=== PATIENT | male | born 1985 | race Caucasian/White ===

== ENCOUNTER 2017-05-24 13:43 | Emergency (ER) | payer OTHER ==
--- NOTE | 2017-05-24 17:33 | ED ---
Dizziness - HPI Summary HPI Summary: Patient presents with dizziness and left ear pain x 4 days. He denies medication changes, cough, chest pain, FINCH, or other illness. Dizziness is worse at night and better with rest. Dizziness is worse with laying to sitting and sitting to standing. He is otherwise healthy and takes no medications. Denies allergies. Denies recent travel. - History Of Current Complaint Chief Complaint: UCDizziness Stated Complaint: DIZZY,HEAD-EAR COMPLAINT Time Seen by Provider: 05/24/17 17:00 Hx Obtained From: Patient Onset/Duration: Still Present Timing: Minutes Severity Initially: Moderate Severity Currently: Moderate Character: Lightheaded, Dizzy Aggravating Factor(s): Position Change, Supine To Erect Alleviating Factor(s): Rest, Lying Down, Closing Eyes Associated Signs And Symptoms: Positive: Other: - ear pin - Risk Factors Cardiac Risk Factors: Negative CVA Risk Factor: Negative - Allergies/Home Medications Allergies/Adverse Reactions: Allergies Allergy/AdvReac Type Severity Reaction Status Date / Time No Known Allergies Allergy Verified 05/24/17 13:56 PMH/Surg Hx/FS Hx/Imm Hx Previously Healthy: Yes - Immunization History Hx Pertussis Vaccination: No Immunizations Up to Date: Unable to Obtain/Confirm Infectious Disease History: No Infectious Disease History: Denies: Traveled Outside the in Last 30 Days - Social History Occupation: Unemployed Lives: With Family Alcohol Use: None Hx Substance Use: No Substance Use Type: Reports: None Hx Tobacco Use: No Smoking Status (MU): Never Smoked Tobacco Review of Systems Constitutional: Negative Eyes: Negative Cardiovascular: Negative Respiratory: Negative Positive: no symptoms reported, see HPI Musculoskeletal: Negative Neurological: Other - dizziness Psychological: Normal All Other Systems Reviewed And Are Negative: Yes Physical Exam Triage Information Reviewed: Yes Vital Signs On Initial Exam: Initial Vitals Temp Pulse Resp BP Pulse Ox 97.9 F 70 18 134/68 100 05/24/17 13:50 05/24/17 13:50 05/24/17 13:50 05/24/17 13:50 05/24/17 13:50 Vital Signs Reviewed: Yes Appearance: Positive: Well-Appearing, No Pain Distress, Well-Nourished Skin: Positive: Warm, Skin Color Reflects Adequate Perfusion Eyes: Positive: Normal, EOMI, KEN, Conjunctiva Clear ENT: Positive: Pharynx normal, TMs normal Neck: Positive: Supple, No Lymphadenopathy Respiratory/Lung Sounds: Positive: Clear to Auscultation, Breath Sounds Present Cardiovascular: Positive: Normal, RRR, Pulses are Symmetrical in both Upper and Lower Extremities Musculoskeletal: Positive: Normal, Strength/ROM Intact Neurological: Positive: Normal, Sensory/Motor Intact, Alert, Oriented to Person Place, Time, CN Intact II-III, Normal Gait, Speech Normal Psychiatric: Positive: Normal - [place] Coma Scale Best Eye Response: 4 - Spontaneous Best Motor Response: 6 - Obeys Commands Best Verbal Response: 5 - Oriented Diagnostics - Vital Signs Vital Signs Temp Pulse Resp BP Pulse Ox 05/24/17 16:25 98.0 F 75 16 139/76 100 05/24/17 13:50 97.9 F 70 18 134/68 100 - Laboratory Lab Statement: Any lab studies that have been ordered have been reviewed, and results considered in the medical decision making process. Dizzy Course/Dx - Course Course Of Treatment: Orthostatics normal. VS normal. Dizziness worse with position. Likely Labrynthitis vs. BPPV. Denies N/V. TM's normal. Will treat for BPPV, but also add steroids for a labyrnthitis component and follow up with Dr. Abrams. Denies tinnitus or hearing loss. - Diagnoses Differential Diagnosis/HQI/PQRI: Benign Paroxysmal Positional Vertigo, Labyrinthitis, Meniere's Disease Provider Diagnoses: Acute labyrinthitis Discharge - Discharge Plan Condition: Stable Disposition: HOME Prescriptions: Meclizine HCl [Meclizine 25] 25 mg PO BID #15 tab predniSONE TAB* [Deltasone TAB*] 50 mg PO DAILY #6 tab Patient Education Materials: Labyrinthitis (ED), Dizziness (ED) Referrals: [facility] [Primary Care Provider] - Stanley Abrams MD [Medical Doctor] - Additional Instructions: Follow up with Dr. Abrams as needed if symptoms persist Take Meclizine up to twice daily for dizziness Prednisone (1 tab daily in the morning) for [address] Abrams's office for appt.
[2017-05-24 17:37] VITALS: BP 139/74
== END 2017-05-24 17:56 | disposition home or self-care (01) ==
LOC: UCEAST 13:43
DX: H83.09 Labyrinthitis, unspecified ear (principal)
CPT/HCPCS: 99202; G0463

== ENCOUNTER 2017-05-31 15:37 | Emergency (ER) | payer OTHER ==
[2017-05-31 17:57] VITALS: BP 123/81
--- NOTE | 2017-05-31 18:49 | UC ---
Tanja Kramer Alfonso, scribed for Lino Gonzáles MD on 05/31/17 at 1744 . General HPI - HPI Summary HPI Summary: This patient is a 31 year old M presenting to [facility] with a chief complaint of dizziness since one week ago. Pt rates the pain 5/10 in severity. Symptoms aggravated by exertion and turning his head. Symptoms alleviated by nothing. Pt reports fever, vision change, left facial numbness, drainage from left ear, left ear hearing loss, and back pain. Pt denies CP, sore throat, rhinorrhea, dental pain, rooms spinning, and headache. Pt medications reviewed this visit. - History of Current Complaint Chief Complaint: UCEar Stated Complaint: DIZZY Time Seen by Provider: 05/31/17 17:32 Hx Obtained From: Patient Onset/Duration: Sudden Onset, Lasting Weeks - 1, Still Present Timing: Constant Onset Severity: Moderate Current Severity: Moderate Pain Intensity: 5 - 5/10 Aggravating: exertion and turning his head Alleviating: nothing Associated Signs & Symptoms: Positive: Other - Positive dizziness, fever, vision change, left facial numbness, drainage from left ear, left ear hearing loss, and back pain; negative CP, sore throat, rhinorrhea, dental pain, rooms spinning, and headache. - Allergy/Home Medications Allergies/Adverse Reactions: Allergies Allergy/AdvReac Type Severity Reaction Status Date / Time No Known Allergies Allergy Verified 05/31/17 16:16 PMH/Surg Hx/FS Hx/Imm Hx - Surgical History Surgical History: None - Family History Known Family History: Negative: Cardiac Disease, Diabetes - Social History Alcohol Use: None Substance Use Type: None Smoking Status (MU): Never Smoked Tobacco Review of Systems Constitutional: Fever Eyes: Other - Positive vision change, ENT: Other - Positive drainage from left ear, left ear hearing loss; negative dental pain, sore throat, rhinorrhea, Cardiovascular: Other - Negative CP. Musculoskeletal: Other: - Positive back pain Neurological: Other - Positive dizziness, left facial numbness; negative rooms spinning, and headache. All Other Systems Reviewed And Are Negative: Yes Physical Exam Triage Information Reviewed: Yes Appearance: Well-Appearing, No Pain Distress Vital Signs: Initial Vital Signs Temp 98.3 F 05/31/17 16:12 Pulse 93 05/31/17 16:12 Resp 16 05/31/17 16:12 BP 121/74 05/31/17 16:12 Pulse Ox 100 05/31/17 16:12 Vital Signs Reviewed: Yes Eyes: Positive: Other: - EOMI, KEN ENT: Positive: Normal ENT inspection, Other: - Fluid left behind TM. Left ear canal moist. Left ear not erythematous. Neck: Positive: Supple, Nontender Respiratory: Positive: Other: - CTA, breath sounds present Cardiovascular: Positive: RRR Abdomen Description: Positive: Nontender, Soft Bowel Sounds: Positive: Present Musculoskeletal: Positive: Strength Intact, ROM Intact Neurological: Positive: Alert Psychological: Positive: Age Appropriate Behavior Skin Exam: Normal Course/Dx - Course Course Of Treatment: RX AUGMENTIN/CORTISPORIN OTIC/MECLIZINE. PATIENT WILL GET REEVAL IF NOT IMPROVED/WORSE. - Differential Dx - Multi-Symptom Provider Diagnoses: SINUSITIS. LEFT OTITIS EXTERNA. VERTIGO. Discharge - Discharge Plan Condition: Stable Disposition: HOME Prescriptions: Amoxicillin/Clavulanate TAB* [Augmentin TAB 875*] 875 mg PO BID #20 tab Meclizine HCl [Meclizine 25] 25 mg PO Q6H PRN #15 tab PRN Reason: Dizziness Neomyc/Polym/HC 1% OTIC SUSP* [Cortisporin Otic Susp 1%*] 4 drop LEFT EAR QID # 1 btl Patient Education Materials: Sinusitis (ED), Vertigo (ED), Otitis Media (ED) Referrals: [facility] [Primary Care Provider] - Additional Instructions: FOLLOW UP WITH YOUR DOCTOR. RETURN TO THE EMERGENCY DEPARTMENT FOR ANY WORSENING OF YOUR CONDITION OR QUESTIONS OR CONCERNS. The documentation as recorded by the Tanja dobson Alfonso accurately reflects the service I personally performed and the decisions made by me, Lino Gonzáles MD.
== END 2017-05-31 17:57 | disposition home or self-care (01) ==
LOC: UCEAST 15:37
DX: J32.9 Chronic sinusitis, unspecified (principal); H60.92 Unspecified otitis externa, left ear; R42 Dizziness and giddiness
CPT/HCPCS: 99212; G0463